=== PATIENT | female | born 1995 | race American Indian/Alaskan Native ===

== ENCOUNTER 2021-05-04 19:29 | Emergency (ER) | payer BC ==
[~2021-05-04] VITALS: Ht 165.1 cm; Wt 73.0 kg
== END 2021-05-04 22:00 | disposition home or self-care (01) ==
LOC: ED 19:29
DX: R11.10 Vomiting, unspecified (principal); F17.200 Nicotine dependence, unspecified, uncomplicated
CPT/HCPCS: 80053; 81001; 83735; 84703; 85025; 96374; 99284-25; J2405; J7040; J7121